=== PATIENT | male | born 1945 | race Caucasian/White ===

== ENCOUNTER 2024-05-16 13:20 | Observation (INO) ==
--- NOTE | 2024-05-16 13:37 | ED Triage Note ---
Date of Service May 16, 2024 Provider in Triage Author: Alva Rivers History of Present Illness This patient was briefly evaluated while in triage. An abbreviated physical exam was performed. This patient is a 78-year-old Male who presents to the ED for evaluation couldn't answer questions/speak properly, left arm wasn't working properly - started 1230 only now just starting to clear hx of TIA 10 years ago visiting from [place] on Xarelto Physical Exam GENERAL: NAD CARDIOVASCULAR: RRR RESPIRATORY: CTA NEURO: ambulatory into triage, mildly confused, speech clear, no facial droop Initial orders for labs and / or imaging were placed and patient was placed in the waiting area until a bed is available. Please see further documentation for the full ED course.
[2024-05-16] MEDS: OPTIRAY 320 125ml IV ONE (13:43)
--- NOTE | 2024-05-16 13:57 | Emergency Department Note ---
Impression & Plan TIA (transient ischemic attack), Stroke-like symptom ED Provider Note NAME: RADHA DE LA GARZA AGE: 78 SEX: M : 1945 ARRIVES VIA: Walk-In INFORMANT: Patient, , daughters ED PROVIDER(S): Willy Lentz MD CHIEF COMPLAINT: Left-sided weakness, facial droop, difficulty with speech MEDICAL DECISION MAKING: Patient presents with the above but did have improvement by the time presenting to the emergency department my evaluation. Stroke alert initiated. No overt deficits on exam. IV was established code stroke was initiated at the time of being evaluated in triage and the patient was sent immediately to CAT scan. By my read no obvious bleeding. The patient does take Xarelto. Patient does have a prior history of CVA in the past. I did speak with Dr. Cramer who stated that the initial CT head negative. CT angiography states show PT stenosis on the left side. I did speak with the on- call telestroke neurologist Dr. Olsen who stated no intervention at this time. He did state should consider removing the patient's aspirin as this may increase bleeding risk although patient does have a history of CABG. He also discussed adding Zetia to the patient's treatment regimen. These possible recommendations were passed on to the inpatient service and they will discuss treatment. Patient's blood work showed a normal white count mild anemia hemoglobin 13.6 with a normal platelet count. Kidney function is unremarkable. I did inform the patient and the patient's family of the recommendations. I subsequently did speak with Dr. Georges and the patient was admitted to the medicine service. MRI ordered and pending at the time of admission. Critical Care: I have personally spent 35 minutes of critical care time in direct management of this patient. This includes bedside care, interpretation of diagnostic studies, and testing, discussion with consultants, patient, and family members, and other require inpatient management activities. This 35 minutes is in excess of all separately billable procedures. Discussion w/ other healthcare providers: Dr. Cramer radiology Dr. Olsen telestroke neurology [facility] Dr. Georges inpatient service [facility] Prior /Outside records reviewed: none Differential diagnosis: Infection, dehydration, metabolic abnormality, hypo/hyperglycemia, electrolyte imbalance, anemia, UTI, pneumonia, thyroid dysfunction among others were considered. Diagnostics, as interpreted by me: ECG: A-fib, rate of 99, normal QRS duration, normal axis no obvious ST elevations. Cardiac monitoring: An order was placed for continuous cardiac monitoring. The monitor shows a rate of 95 with irregular irregular rhythm. Patient was placed on pulse oximetry Medical decision rules: None Imaging studies: I informally interpreted the patient's CT head which does not show obvious ICH with formal report to follow. HPI: Patient presents due to concern for left-sided weakness difficulty with speech and left-sided facial droop. Patient reportedly had a bout of confusion around this time this was an hour and half prior to arrival. The patient did present by private vehicle. Patient is visiting his daughters from [place]. The patient does feel as though symptoms are improving virtually resolving. The patient does not complain of any numbness. The patient primarily was concerned about his speech. The daughter states that she was evaluating his strength and seem to be a little "off" in his left arm and leg although was able to move both extremities. Patient denies any chest pains or shortness of breath. Family does report that he had some sort of fluid taken off of his heart at a time before. This was last Easter. Patient denies any chest pains or shortness of breath. No concern for tick bites or Lyme's. Patient did have a prior stroke about 10 years ago. He is anticoagulated due to known history of A-fib and does take aspirin as well as a statin. PAST MEDICAL HISTORY: CAD, hypertension, hyperlipidemia, CVA,, GERD, anxiety, BPH PAST SURGICAL HISTORY: CABG x 3 SOCIAL HISTORY: Denies alcohol tobacco or drug use. Lives in [place]. HOME MEDICATIONS: See Below ALLERGIES: See Below VITALS: See Below PHYSICAL EXAMINATION: GENERAL: NAD, non-toxic. EYE EXAM: Normal conjunctiva. PERRL, no anisocoria and EOM's grossly intact w/o pain. OROPHARYNX: Moist mucus membranes, grossly normal dentition. NECK: Trachea midline, no stridor. Supple, no nuchal rigidity, no adenopathy, non-tender. No signs of meningismus. FROM of the neck with good chin to chest and neck extension. LUNGS: Clear to auscultation. Normal chest wall mechanics. HEART: NSR, no MRG. ABDOMEN: Abdomen soft, non-tender, no masses, no rebound or guarding. BACK: No CVA TTP. SKIN: No rashes and no bruising. UPPER EXTREMITIES: Upper extremities are grossly normal. LOWER EXTREMITIES: Grossly normal, no edema. NEURO EXAM: A&O x3, cranial nerves II-XII grossly intact, normal speech, moves all 4 extremities. Good [id number], no drift and no sensory deficits. Equal and symmetric strength in all 4 extremities. Past Med/Surg History Problem List (Updated 05/17/24 @ 11:20 by Willy Lentz MD) Stroke-like symptom (Acute) TIA (transient ischemic attack) (Acute) Social History Smoking Status: Former smoker Hx Alcohol Use: No Hx Substance Use: No Preferred Language: Japanese Communication Ability: Effective Supervising Bailiff Required: No Beliefs That Will Affect Care: None Current Living Situation: Spouse Feels Safe at Home: Yes Assistive Devices: Glasses and Hearing Aid - Bilateral Allergies Allergies Allergy/AdvReac Type Severity Reaction Status Date / Time Tetanus Vaccines and Toxoid Allergy Unknown Verified 05/16/24 13:36 Home Meds Home Medications Medication Instructions Recorded Confirmed aspirin 81 mg tablet,delayed 81 mg PO DAILY 05/16/24 05/16/24 release atorvastatin 80 mg tablet 80 mg PO DAILY 05/16/24 05/16/24 dutasteride 0.5 mg capsule 0.5 mg PO DAILY 05/16/24 05/16/24 furosemide 20 mg tablet 20 mg PO Q OTHER DAY 05/16/24 05/16/24 metoprolol tartrate 25 mg tablet 12.5 mg PO BID 05/16/24 05/16/24 rivaroxaban 20 mg tablet (Xarelto) 20 mg PO DAILY 05/16/24 05/16/24 tamsulosin 0.4 mg capsule 0 mg PO BID 05/16/24 05/16/24 valsartan 40 mg tablet 20 mg PO BID 05/16/24 05/16/24 venlafaxine 150 mg tablet,extended See Rx Instructions .Route .COMPLEX 05/16/24 05/16/24 release 24 hr venlafaxine 75 mg capsule,extended See Rx Instructions .Route .COMPLEX 05/16/24 05/16/24 release 24 hr Results & Data (ED) Vital Signs Vital Signs - 24 hr 05/16/24 13:31 05/16/24 14:00 05/16/24 15:09 Temperature 36.9 C Temperature Source Temporal Artery Scan Pulse Rate 94 H 89 Pulse Rate [Right Finger] 81 Respiratory Rate 18 26 H Respiratory Effort / Characteristics Non-Labored Spontaneous Non-Labored Spontaneous Respiratory Depth Normal Normal Blood Pressure 149/89 H Blood Pressure [Right Arm] 159/108 H Blood Pressure Mean 109 Blood Pressure Mean [Right Arm] 125 Pulse Oximetry 97 100 Oxygen Delivery Method Room Air Room Air Sepsis Recent Fever Within 48 Hours No Sepsis New/Unexplained Change in Mental Status No Sepsis Action Taken by Nursing No Action Required Home Medications Current Medication List: was personally reviewed by me Laboratory Data Attestation: I reviewed the patient's lab results. 05/17/24 06:45 05/17/24 06:45 Lab Results 05/16/24 05/16/24 Range/Units 13:52 13:53 WBC 10.03 (4.8-10.8) K/ul RBC 4.12 L (4.70-6.10) M/uL Hgb 13.6 L (14.0-18.0) g/dl Hct 40.5 L (42.0-52.0) % MCV 98.3 (80.0-100.0) fL MCH 33.0 (25.0-34.0) pg MCHC 33.6 (32.0-36.0) g/dL RDW Std Deviation 44.0 (36.4-46.3) fL RDW Coeff of Mariel 12.2 (11.5-14.5) % Plt Count 164 (130-400) K/uL MPV 9.0 L (9.4-12.4) fL Immature Gran % (Auto) 0.6 % Neut % (Auto) 72.3 % Lymph % (Auto) 14.1 % [place] % (Auto) 10.8 % Eos % (Auto) 1.7 % Baso % (Auto) 0.5 % Neut # (Auto) 7.26 H (1.40-6.50) K/uL Lymph # (Auto) 1.41 (1.20-3.40) K/uL [place] # (Auto) 1.08 H (0.11-0.59) K/uL Eos # (Auto) 0.17 (0.00-0.50) K/uL Baso # (Auto) 0.05 (0.00-0.20) K/uL Immature Gran # (Auto) 0.06 (0.01-0.20) K/uL PT 13.5 H (9.0-12.0) Seconds INR 1.3 H (0.9-1.1) APTT 32 H (21-31) Seconds PTT Ratio 1.2 Sodium 137 (136-145) mmol/L Potassium 4.2 (3.5-5.1) mmol/L Chloride 104 (98-107) mmol/L Carbon Dioxide 29 (21-32) mmol/L Anion Gap 4 (3-11) BUN 25 H (6-23) mg/dl Creatinine 1.41 H (0.6-1.4) mg/dl Est Cr Clr Drug Dosing 46.2 ml/min eGFR 51.33 BUN/Creatinine Ratio 17.7 (10-20) Glucose 95 (70-99(Fasting)) mg/dl POC Glucose 88 (70-99) mg/dl Calcium 8.1 L (8.6-10.3) mg/dl Magnesium 1.8 (1.7-2.4) mg/dl Total Bilirubin 0.5 (0.2-1.0) mg/dl AST 17 (13-39) U/L ALT 14 (7-52) U/L Alkaline Phosphatase 87 (34-104) U/L Troponin I High Sens 9.1 (0-20) pg/ml Total Protein 5.8 L (6.0-8.3) gm/dl Albumin 3.2 L (3.4-5.0) gm/dl Globulin 2.6 (2.5-4.0) gm/dl Albumin/Globulin Ratio 1.2 (0.9-2) Administered Medications Aspirin (Aspirin 81 Mg Ectab) 81 mg PO DAILY [facility] Stop: 06/16/24 08:59 Last Admin: 05/17/24 08:25 Dose: 81 mg Documented By: MS Atorvastatin Calcium (Atorvastatin 40 Mg Tab) 80 mg PO DAILY CAM Stop: 06/16/24 08:59 Last Admin: 05/17/24 08:25 Dose: 80 mg Documented By: MS Finasteride (Finasteride 5 Mg Tab) 5 mg PO DAILY CAM Stop: 06/16/24 08:59 Last Admin: 05/17/24 08:25 Dose: 5 mg Documented By: MS Metoprolol Tartrate (Metoprolol Tartrate 25 Mg Tab) 12.5 mg PO BID CAM Stop: 06/15/24 20:59 Last Admin: 05/17/24 08:25 Dose: 12.5 mg Documented By: Admin: 05/16/24 20:55 Dose: 12.5 mg Documented By: BERNARD Rivaroxaban (Rivaroxaban 15 Mg Tab) 15 mg PO DAILY CAM Stop: 06/16/24 08:59 Last Admin: 05/17/24 08:24 Dose: 15 mg Documented By: Venlafaxine HCl (Venlafaxine Hcl Xr 75 Mg Capxr) 75 mg PO DAILY CAM Stop: 06/16/24 08:59 Last Admin: 05/17/24 08:24 Dose: 75 mg Documented By: Venlafaxine HCl (Venlafaxine Hcl Xr 150 Mg Capxr) 150 mg PO DAILY CAM Stop: 06/16/24 08:59 Last Admin: 05/17/24 08:24 Dose: 150 mg Documented By: MS Discontinued Medications Sodium Chloride (Nss) 1,000 mls @ 75 mls/hr IV .[id number] CAM Stop: 05/17/24 07:45 Last Infusion: 05/17/24 10:14 Dose: Infused Documented By: Admin: 05/16/24 20:54 Dose: 75 mls/hr Documented By: BERNARD Ioversol (Optiray 320 125ml) 117 ml IV ONCE ONE Stop: 05/16/24 13:43 Last Admin: 05/16/24 13:43 Dose: 117 ml Documented By: [facility] Imaging Data Radiologist's Impression: Head CT 05/16/24 13:40 CT angio neck with con, CT head/brain wo con CLINICAL HISTORY: neuro deficit, acute stroke suspected TECHNIQUE: Contiguous axial CT images of the head were acquired from the base of the skull to the vertex without intravenous contrast administration. CT angiography of the head and neck was performed following intravenous administration of iodinated contrast. Coronal and sagittal MIPS were obtained from the axial data set and were submitted for review. Automated dose lowering techniques and/or adjustment according to patient size were utilized for this examination. All measurements were calculated based on NASCET criteria. CT DOSE: 1189.32 mGy.cm Comparison: None available at the time of this dictation. FINDINGS: CT head: There is no acute intracranial hemorrhage or evidence of acute territorial infarction. No shift of the midline structures, mass effect, or extra-axial abnormalities are shown. Lungs and soft tissues are unremarkable. CTA Neck: A 3 vessel aortic arch is shown. There is no significant atherosclerotic plaque in the aortic arch or the origins of the innominate, left common carotid, and left subclavian arteries. There is approximately 50% bilateral stenosis of the internal carotid artery owing to plaque at the carotid bifurcations. The left vertebral artery is dominant. IMPRESSION: 1. No acute intracranial hemorrhage, evidence of acute territorial infarction, or other acute intracranial disease process. 2. Bilateral prominent but nonhemodynamically significant stenosis of the internal carotid arteries, likely on a chronic basis. Assessment of stenosis of the internal carotid arteries is based on NASCET criteria. ACT 112: Negative or not required by law. Electronically signed by: Chaka Escoto M.D. 05/16/2024 2:01 PM Head CTA 05/16/24 13:40 CTA ANGIOGRAPHY OF THE HEAD CLINICAL HISTORY: neuro deficit, acute stroke suspected COMPARISON STUDY: No previous studies for comparison. TECHNIQUE: Helical axial images of the head were obtained following uneventful intravenous administration of 117 cc of Optiray. Sagittal and coronal reconstructions were viewed as well as maximal intensity projections on an independent 3-D workstation. Automated exposure control was utilized for the study. A dose lowering technique was utilized adhering to the principles of ALARA. FINDINGS: No acute intracranial hemorrhage, midline shift or mass effect is present. Ventricular system is unremarkable. Basal cisterns are patent. There are no extra-axial collections. White matter hypodensities favor small vessel disease. There is moderate calcified plaque within the bilateral cavernous carotids which results in mild stenosis of these vessels. No large vessel occlusion is present. There are severe stenoses within the P2 segment of the left posterior cerebral artery. No abrupt vessel cut off is identified. No intracranial aneurysm. IMPRESSION: 1. No large vessel occlusion. No intracranial aneurysm. 2. 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 Mild stenosis of the bilateral cavernous carotids. ACT 112: Negative or not required by law. Electronically signed by: Venkata Castillo M.D. 05/16/2024 2:01 PM Neck CTA 05/16/24 13:40 CT angio neck with con, CT head/brain wo con CLINICAL HISTORY: neuro deficit, acute stroke suspected TECHNIQUE: Contiguous axial CT images of the head were acquired from the base of the skull to the vertex without intravenous contrast administration. CT angiography of the head and neck was performed following intravenous administration of iodinated contrast. Coronal and sagittal MIPS were obtained from the axial data set and were submitted for review. Automated dose lowering techniques and/or adjustment according to patient size were utilized for this examination. All measurements were calculated based on NASCET criteria. CT DOSE: 1189.32 mGy.cm Comparison: None available at the time of this dictation. FINDINGS: CT head: There is no acute intracranial hemorrhage or evidence of acute territorial infarction. No shift of the midline structures, mass effect, or extra-axial abnormalities are shown. Lungs and soft tissues are unremarkable. CTA Neck: A 3 vessel aortic arch is shown. There is no significant atherosclerotic plaque in the aortic arch or the origins of the innominate, left common carotid, and left subclavian arteries. There is approximately 50% bilateral stenosis of the internal carotid artery owing to plaque at the carotid bifurcations. The left vertebral artery is dominant. IMPRESSION: 1. No acute intracranial hemorrhage, evidence of acute territorial infarction, or other acute intracranial disease process. 2. Bilateral prominent but nonhemodynamically significant stenosis of the internal carotid arteries, likely on a chronic basis. Assessment of stenosis of the internal carotid arteries is based on NASCET criteria. ACT 112: Negative or not required by law. Electronically signed by: Chaka Escoto M.D. 05/16/2024 2:01 PM Brain MRI 05/16/24 15:04 EXAM: MR brain wo con CLINICAL HISTORY: Per pt''s - episode of confusion, slurred speech, and headache, no head trauma, hx stroke 10 yrs ago. TECHNIQUE: MRI of the brain was performed without contrast with multiplanar sequences obtained. COMPARISON: .No previous studies are available for comparison. FINDINGS: Brain Parenchyma: No evidence of acute infarction or hemorrhage. Bilateral periventricular sheets of abnormal bright T2 and FLAIR weighted images are seen denoting dismantled artery disease Multiple tiny subcentimeteric foci of bright signal in FLAIR weighted images are seen scattered within both cerebral hemispheres most evident at the frontoparietal regions Subcortical and periventricular in location, with no appreciable mass effect on the surrounding structures and no evidence of restricted diffusion. Ventricles and Sulci: Mild to moderate symmetrical dilatation of the ventricular system Widened both Sylvian fissures prominent cortical sulci and basal cisterns as well as extra-axial CSF spaces Posterior Fossa: The cerebellum and brainstem appear normal without evidence of mass lesions or signal abnormalities. Cranial Nerves: Normal course and appearance of cranial nerves identified. Vessels: No evidence of vascular malformations or aneurysms. Intracranial arteries and veins appear normal without evidence of stenosis or occlusion. Orbits and Skull Base: Orbits and skull base structures are normal without evidence of abnormalities. IMPRESSION: : 1. No acute intracranial abnormality was identified. 2. Cortical brain involutional changes with deep white matter small artery disease. 3. Bilateral cerebral ischemic foci and old lacunar infarcts. Electronically signed by Rodrigo Colby 05-16-2024 7:46 PM Discharge Plan Visit Data Chief Complaint: TIA Symptoms Stated Complaint: SPEECH, DROOPY FACE, LT NUMB, ED Provider: Willy Lentz Discharge Problem: TIA (transient ischemic attack), Stroke-like symptom Patient Disposition: Admitted As Inpatient Discharge Instructions Interventions: ED Discharge Assessment Last Done: 05/16/24 18:11
--- NOTE | 2024-05-16 14:02 | CT Scan Report ---
CT angio neck with con, CT head/brain wo con CLINICAL HISTORY: neuro deficit, acute stroke suspected TECHNIQUE: Contiguous axial CT images of the head were acquired from the base of the skull to the héctor oh without intravenous contrast administration. CT angiography of the head and neck was performed f ollowing intravenous administration of iodinated contrast. Coronal and sagittal MIPS were obtained fr om the axial data set and were submitted for review. Automated dose lowering techniques and/or adjus tment according to patient size were utilized for this examination. All measurements were calculated based on NASCET criteria. CT DOSE: 1189.32 mGy.cm Comparison: None available at the time of this dictation. FINDINGS: CT head: There is no acute intracranial hemorrhage or evidence of acute territorial infarction. No sh ift of the midline structures, mass effect, or extra-axial abnormalities are shown. Lungs and soft tissues are unremarkable. CTA Neck: A 3 vessel aortic arch is shown. There is no significant atherosclerotic plaque in the aor tic arch or the origins of the innominate, left common carotid, and left subclavian arteries. There is approximately 50% bilateral stenosis of the internal carotid artery owing to plaque at the carotid bifurcations. The left vertebral artery is dominant. IMPRESSION: 1. No acute intracranial hemorrhage, evidence of acute territorial infarction, or other acute intrac ranial disease process. 2. Bilateral prominent but nonhemodynamically significant stenosis of the internal carotid arteries, likely on a chronic basis. Assessment of stenosis of the internal carotid arteries is based on NASCET criteria. ACT 112: Negative or not required by law. Electronically signed by: Chaka Escoto M.D. 05/16/2024 2:01 PM
--- NOTE | 2024-05-16 14:02 | CT Scan Report ---
CTA ANGIOGRAPHY OF THE HEAD CLINICAL HISTORY: neuro deficit, acute stroke suspected COMPARISON STUDY: No previous studies for comparison. TECHNIQUE: Helical axial images of the head were obtained following uneventful intravenous administr ation of 117 cc of Optiray. Sagittal and coronal reconstructions were viewed as well as maximal inten sity projections on an independent 3-D workstation. Automated exposure control was utilized for the study. A dose lowering technique was utilized adhering to the principles of ALARA. FINDINGS: No acute intracranial hemorrhage, midline shift or mass effect is present. Ventricular syst em is unremarkable. Basal cisterns are patent. There are no extra-axial collections. White matter hyp odensities favor small vessel disease. There is moderate calcified plaque within the bilateral cavern ous carotids which results in mild stenosis of these vessels. No large vessel occlusion is present. T here are severe stenoses within the P2 segment of the left posterior cerebral artery. No abrupt vesse l cut off is identified. No intracranial aneurysm. IMPRESSION: 1. No large vessel occlusion. No intracranial aneurysm. 2. 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 Mild stenosis of the bilateral cavernous carotids. ACT 112: Negative or not required by law. Electronically signed by: Venkata Castillo M.D. 05/16/2024 2:01 PM
[2024-05-16 14:05] LABS: Basophils # (auto) 0.05 K/uL (0.00-0.20); Basophils % (auto) 0.5 %; Eosinophils # (auto) 0.17 K/uL (0.00-0.50); Eosinophils % (auto) 1.7 %; Hematocrit (blood only) 40.5 % (42.0-52.0); Hemoglobin 13.6 g/dl (14.0-18.0); Immature Granulocytes # (auto) 0.06 K/uL (0.01-0.20); Immature Granulocytes % (auto) 0.6 %; Lymphocytes # (auto) 1.41 K/uL (1.20-3.40); Lymphocytes % (auto) 14.1 %; Mean Corpuscular Hgb Conc 33.6 g/dL (32.0-36.0); Mean Corpuscular Volume 98.3 fL (80.0-100.0); Monocytes # (auto) 1.08 K/uL (0.11-0.59); Monocytes % (auto) 10.8 %; Neutrophils # (auto) 7.26 K/uL (1.40-6.50); Neutrophils % (auto) 72.3 %; Platelet Count 164 K/uL (130-400); RDW Coefficient of Variation 12.2 % (11.5-14.5); Red Blood Count 4.12 M/uL (4.70-6.10); White Blood Count 10.03 K/ul (4.8-10.8)
[2024-05-16 14:24] LABS: Albumin Globulin Ratio 1.2 (0.9-2); Albumin Level 3.2 gm/dl (3.4-5.0); BUN Creatinine Ratio 17.7 (10-20); Bilirubin,Total 0.5 mg/dl (0.2-1.0); Calcium 8.1 mg/dl (8.6-10.3); Creatinine Clr Calc Pharmacy 46.2 ml/min; Globulin 2.6 gm/dl (2.5-4.0); Magnesium 1.8 mg/dl (1.7-2.4); Potassium 4.2 mmol/L (3.5-5.1); Total Protein 5.8 gm/dl (6.0-8.3)
[2024-05-16 14:30] LABS: Troponin I High Sensitivity 9.1 pg/ml (0-20)
[2024-05-16 14:42] LABS: INR 1.3 (0.9-1.1); Partial Thromboplastin Ratio 1.2; Partial Thromboplastin Time 32 Seconds (21-31); Prothrombin Time 13.5 Seconds (9.0-12.0)
--- NOTE | 2024-05-16 17:34 | XRay Report ---
EXAM: Radiograph of the Chest 1 View INDICATION: Possible TIA. TECHNIQUE: Frontal view of the chest. COMPARISON: No relevant prior studies available. FINDINGS: Lungs and pleural spaces: Coarse interstitial scarring identified. No consolidation or pulmonary edema. No pleural effusion or pneumothorax. Heart: Large cardiac shadow. Coronary bypass changes noted. Mediastinum: Normal contour. Bones/joints: Old left clavicle fracture. Degenerative changes in the spine. No acute osseous abnormality. Soft tissues: No abnormality noted. No radiopaque foreign body noted. Upper abdomen: No abnormality noted. IMPRESSION: No acute cardiopulmonary disease. ACT 112: Negative or not required by law. Electronically signed by Rose Cramer 05-16-2024 5:33 PM
[2024-05-16] MEDS ORDERED: PHARMACIST DISCHARGE MED REC CONSULT PRN (18:26)
[2024-05-16] MEDS ORDERED: hydrALAZINE HCL 20 MG/ML VIAL IV PRN (18:26)
[2024-05-16] MEDS ORDERED: ACETAMINOPHEN 325 MG TAB PO PRN (18:26)
--- NOTE | 2024-05-16 19:46 | Magnetic Resonance Report ---
EXAM: MR brain wo con CLINICAL HISTORY: Per pt''s - episode of confusion, slurred speech, and headache, no head trauma, hx stroke 10 yrs ago. TECHNIQUE: MRI of the brain was performed without contrast with multiplanar sequences obtained. COMPARISON: .No previous studies are available for comparison. FINDINGS: Brain Parenchyma: No evidence of acute infarction or hemorrhage. Bilateral periventricular sheets of abnormal bright T2 and FLAIR weighted images are seen denoting dismantled artery disease Multiple tiny subcentimeteric foci of bright signal in FLAIR weighted images are seen scattered within both cerebral hemispheres most evident at the frontoparietal regions Subcortical and periventricular in location, with no appreciable mass effect on the surrounding structures and no evidence of restricted diffusion. Ventricles and Sulci: Mild to moderate symmetrical dilatation of the ventricular system Widened both Sylvian fissures prominent cortical sulci and basal cisterns as well as extra-axial CSF spaces Posterior Fossa: The cerebellum and brainstem appear normal without evidence of mass lesions or signal abnormalities. Cranial Nerves: Normal course and appearance of cranial nerves identified. Vessels: No evidence of vascular malformations or aneurysms. Intracranial arteries and veins appear normal without evidence of stenosis or occlusion. Orbits and Skull Base: Orbits and skull base structures are normal without evidence of abnormalities. IMPRESSION: : 1. No acute intracranial abnormality was identified. 2. Cortical brain involutional changes with deep white matter small artery disease. 3. Bilateral cerebral ischemic foci and old lacunar infarcts. Electronically signed by Rodrigo Colby 05-16-2024 7:46 PM
--- NOTE | 2024-05-16 20:50 | Electrocardiogram Report ---
Test Reason : Blood Pressure : */* mmHG Vent. Rate : 99 BPM Atrial Rate : * BPM P-R Int : * ms QRS Dur : 88 ms QT Int : 328 ms P-R-T Axes : * 36 3 degrees QTcB Int : 420 ms Atrial fibrillation Nonspecific ST abnormality Abnormal ECG No previous ECGs available Confirmed by Jonathan Hernandez ([id number]) on 05/16/2024 8:50:16 PM Referred By: REFERRED SELF Confirmed By: Jonathan Hernandez
[2024-05-16] MEDS: SODIUM CHLORIDE 0.9% 1,000 ML IV SCH (20:54)
[2024-05-16] MEDS: METOPROLOL TARTRATE 25 MG TAB PO SCH (20:55)
--- NOTE | 2024-05-16 23:16 | History & Physical Report ---
Date of Service May 16, 2024 Assessment & Plan (1) TIA (transient ischemic attack): Plan: 78-year-old male with history of coronary disease, status post CABG, CHF, atrial fibrillation on Xarelto, CVA, hypertension, other problems below presenting with left-sided weakness, slurred speech, facial droop at noon time today. Transient Ischemic attack Atrial fibrillation on Xarelto History of CVA Brain MRI: No acute CVA 1. No acute intracranial abnormality was identified. 2. Cortical brain involutional changes with deep white matter small artery disease. 3. Bilateral cerebral ischemic foci and old lacunar infarcts. [place] CVA CT angiogram head and neck: 1. No acute intracranial hemorrhage, evidence of acute territorial infarction, or other acute intracranial disease process. 2. Bilateral prominent but nonhemodynamically significant stenosis of the internal carotid arteries, likely on a chronic basis. Assessment of stenosis of the internal carotid arteries is based on NASCET criteria. Evaluated by [facility] telestroke, no acute intervention recommended, presentation felt to be TIA There was a mention of recommendation to stop aspirin and add Zetia Will await further recommendations by gastroenterology service who will be consulted per the case For now, continue usual Xarelto and aspirin Hold usual valsartan for permissive hypertension, as needed hydralazine for systolic blood pressure more than 160 Echocardiogram A1c, lipid panel in a.m. CAD, status post CABG CHF Euvolemic, no chest pain Continue usual aspirin, atorvastatin, metoprolol Usually on Lasix 20 mg every 2 days, hold for now as patient received IV contrast and to prevent hypotension Atrial fibrillation on Xarelto Rate controlled Continue metoprolol, Xarelto History of CVA Continue Xarelto, atorvastatin, aspirin Hypertension Hold valsartan for permissive hypertension in setting of TIA BPH Continue Flomax DVT prophylaxis already on Xarelto Full code as per patient Disposition Anticipate return to home medically stable PT OT ordered Lives in [place], visiting children in [place] Admission and Anticipated Discharge Date Admission Date: May 16, 2024 History of Present Illness Chief Complaint: Episode of left-sided weakness, slurred speech, facial droop in the afternoon Primary Care Provider: AUDRA SAUCEDO 78-year-old male with history of coronary disease, status post CABG, CHF, atrial fibrillation on Xarelto, CVA, hypertension, other problems below presenting with left-sided weakness, slurred speech, facial droop at noon time today. Patient lives in [place] and is in town visiting their children. He was doing fine until around 12 noon today, while walking in their deck, patient started to develop a "weird" sensation over the left side of his head, was noted to be slurring his words and not making sense when speaking as per family, as well as having some paresthesias in his left upper arm. Family brought the patient to the ER for evaluation. Patient received blood pressure 149/89, heart rate 94, afebrile, 97% on room air Upon arrival to the ER, which is about an hour and a half after the first symptoms were observed, patient's symptoms have mostly resolved as per family. CT head: No acute process CT angiogram head and neck showing bilateral prominent but nonhemodynamically significant stenosis of the ICAs, likely on a chronic basis Telestroke performed by [place] neurologist, no acute intervention recommended as patient's symptoms are mostly resolving. On exam, patient seen resting in bed, comfortable, in good spirits. Patient's at the bedside supplementing history as well. He reports a mild left-sided headache, but no focal weakness or numbness. His speech is mostly back to baseline as per patient and his . There was still some left lower facial droop. Allergies Allergy/AdvReac Type Severity Reaction Status Date / Time Tetanus Vaccines and Toxoid Allergy Unknown Verified 05/16/24 13:36 Home Medications Medication Instructions Recorded Confirmed Type aspirin 81 mg tablet,delayed 81 mg PO DAILY 05/16/24 05/16/24 History release atorvastatin 80 mg tablet 80 mg PO DAILY 05/16/24 05/16/24 History dutasteride 0.5 mg capsule 0.5 mg PO DAILY 05/16/24 05/16/24 History furosemide 20 mg tablet 20 mg PO Q OTHER DAY 05/16/24 05/16/24 History metoprolol tartrate 25 mg tablet 12.5 mg PO BID 05/16/24 05/16/24 History rivaroxaban 20 mg tablet (Xarelto) 20 mg PO DAILY 05/16/24 05/16/24 History tamsulosin 0.4 mg capsule 0 mg PO BID 05/16/24 05/16/24 History valsartan 40 mg tablet 20 mg PO BID 05/16/24 05/16/24 History venlafaxine 150 mg tablet,extended See Rx Instructions .Route .COMPLEX 05/16/24 05/16/24 History release 24 hr venlafaxine 75 mg capsule,extended See Rx Instructions .Route .COMPLEX 05/16/24 05/16/24 History release 24 hr Past Med/Surg History Problem List (Updated 05/16/24 @ 23:07 by Ryne Georges MD) TIA (transient ischemic attack) Social History Smoking Status: Former smoker Hx Alcohol Use: No Hx Substance Use: No Preferred Language: Romansh Communication Ability: Effective Poiser Balance Required: No Beliefs That Will Affect Care: None Current Living Situation: Spouse Feels Safe at Home: Yes Assistive Devices: Glasses and Hearing Aid - Bilateral Review of Systems Review of Systems: all noted and negative except for above Physical Exam Physical Exam: General- oriented x 3, not in distress, speaks in sentences with no effort or accessory muscle use Head- atraumatic Eyes- PERRL, EOMI, anicteric ENT- oropharynx clear Neck- supple, no JVD, no adenopathy, no thyromegaly; carotids +2/2, no bruits appreciated Lungs- clear to auscultation bilaterally, no rales/wheezes Heart- normal rate, regular rhythm; no murmur, no gallop, no rub appreciated Abdomen- normal bowel sounds, nondistended, soft, nontender, no masses or hepatosplenomegaly Extremities- no pretibial edema, no calf tenderness; peripheral pulses intact Neuro- alert, oriented x 3; CN 2-12 grossly intact Except for mild left lower facial droop; motor 5/5 bilaterally;sensation 100% on all extremities; no other gross focal neurologic deficits Skin- warm & dry Results & Data Results & Data Vital Signs (Past 12 Hours) Vital Signs Temp Pulse Pulse Resp BP BP Pulse Ox 05/16/24 20:18 37.0 C 86 18 140/88 95 05/16/24 19:03 90 05/16/24 18:28 37 C 95 H 18 165/90 H 98 05/16/24 17:41 72 20 162/98 H 99 05/16/24 16:38 106 H 22 165/132 H 99 05/16/24 15:09 81 26 H 159/108 H 100 05/16/24 14:00 89 05/16/24 13:31 36.9 C 94 H 18 149/89 H 97 O2 Del Method 05/16/24 20:18 Room Air 05/16/24 19:03 05/16/24 18:28 Room Air 05/16/24 17:41 Room Air 05/16/24 16:38 Room Air 05/16/24 15:09 Room Air 05/16/24 14:00 05/16/24 13:31 Room Air all noted and reviewed including below Code Status & VTE Plan VTE Prophylaxis Plan VTE Prophylaxis will be ordered: Yes
[2024-05-17 08:06] LABS: Basophils # (auto) 0.07 K/uL (0.00-0.20); Basophils % (auto) 0.8 %; Eosinophils # (auto) 0.29 K/uL (0.00-0.50); Eosinophils % (auto) 3.4 %; Hemoglobin 14.7 g/dl (14.0-18.0); Immature Granulocytes # (auto) 0.04 K/uL (0.01-0.20); Immature Granulocytes % (auto) 0.5 %; Lymphocytes # (auto) 2.72 K/uL (1.20-3.40); Lymphocytes % (auto) 31.7 %; Mean Corpuscular Hemoglobin 33.1 pg (25.0-34.0); Mean Corpuscular Hgb Conc 34.2 g/dL (32.0-36.0); Mean Corpuscular Volume 96.8 fL (80.0-100.0); Mean Platelet Volume 9.7 fL (9.4-12.4); Monocytes # (auto) 0.99 K/uL (0.11-0.59); Monocytes % (auto) 11.6 %; Neutrophils # (auto) 4.46 K/uL (1.40-6.50); Platelet Count 179 K/uL (130-400); RDW Coefficient of Variation 12.3 % (11.5-14.5); RDW Standard Deviation 43.8 fL (36.4-46.3); Red Blood Count 4.44 M/uL (4.70-6.10); White Blood Count 8.57 K/ul (4.8-10.8)
[2024-05-17 08:09] LABS: BUN Creatinine Ratio 16.7 (10-20); Calcium 8.4 mg/dl (8.6-10.3); Chol HDL Ratio 3.4 (0-5); Creatinine Clr Calc Pharmacy 43.4 ml/min; Potassium 4.3 mmol/L (3.5-5.1)
[2024-05-17 08:23] LABS: Estimated Average Glucose 128 mg/dl; Hemoglobin A1C 6.1 % (4.5-5.6)
[2024-05-17] MEDS: RIVAROXABAN 15 MG TAB PO SCH (08:24)
[2024-05-17] MEDS: VENLAFAXINE HCL XR 150 MG CAPXR PO SCH (08:24)
[2024-05-17] MEDS: VENLAFAXINE HCL XR 75 MG CAPXR PO SCH (08:24)
[2024-05-17] MEDS: ASPIRIN 81 MG ECTAB PO SCH (08:25)
[2024-05-17] MEDS: FINASTERIDE 5 MG TAB PO SCH (08:25)
[2024-05-17] MEDS: ATORVASTATIN 40 MG TAB PO SCH (08:25)
[2024-05-17 12:13] VITALS: BP 142/65; RESP 16; TEMP 98.1; O2SAT 97
--- NOTE | 2024-05-17 14:22 | Neurology Consultation ---
Date of Consultation May 17, 2024 Assessment & Plan (1) TIA (transient ischemic attack): Suspect that the patient had a TIA yesterday related to his atrial fibrillation, unsure about hypoperfusion through stenosed vessels Plan Discussed with the patient that management regarding stroke prevention would continue to be with an anticoagulant like Xarelto. Strategies include adequate hydration, probably treating infections, medication compliance and continuing to take statins. Echocardiogram is pending however management would continue to be with anticoagulation I agree that the patient needs to discuss the need for added aspirin to the Xarelto given the high risk of bleeding. Adherence with CPAP Further cardiac management per cardiology and primary team. Telehealth Consultation Telehealth Information Telehealth Information: I performed this visit using a real-time telehealth connection between my location and the patients location ([facility]). After connecting through interactive tele-video, patient was identified by name and date of and/or wristband check.Patient (or authorized healthcare uniforms sales representative) was informed that this was a telemedicine visit and it was being conducted confidentially over secure lines. My office door was closed and no one else was present in the room with me.Patient (or authorized healthcare uniforms sales representative) provided consent to proceed with the visit, expressed an understanding of privacy and security of the telemedicine visit, and gave permission to have a hospital uniforms sales representative in the room in order to assist with the visit and to conduct portions of the visit, as needed. I informed the patient (or authorized healthcare uniforms sales representative) that I reviewed their record and presented the opportunity for them to ask any questions regarding the visit today. The patient agreed to participate. History of Present Illness Reason for Consultation: TIA Requesting Physician: Ovi Hennessy MD Attending Physician: Gerhard Dior MD History of Present Illness Demarcus De La Cruz is [id number] male patient with PMH of A-fib on Xarelto, and aspirin CAD, s/p CABG, HTN, BPH who presented with acute onset of dysarthria and speech changes in addition to weird sensation on the left side of her head, her symptoms have mostly resolved per family upon ED arrival. Stroke neurology has recommended adding Zetia. Today the patient tells me that his symptoms have resolved he has no focal neurological deficits, no visual changes no slurring of his speech or difficulty with swallowing no numbness or weakness, his balance is okay. He had questions about echocardiogram, about possible CHF exacerbation. About the continuing use of CPAP machine. Allergies Allergy/AdvReac Type Severity Reaction Status Date / Time Tetanus Vaccines and Toxoid Allergy Unknown Verified 05/16/24 13:36 Home Medications Medication Instructions Recorded Confirmed Type aspirin 81 mg tablet,delayed 81 mg PO DAILY 05/16/24 05/16/24 History release atorvastatin 80 mg tablet 80 mg PO DAILY 05/16/24 05/16/24 History dutasteride 0.5 mg capsule 0.5 mg PO DAILY 05/16/24 05/16/24 History furosemide 20 mg tablet 20 mg PO Q OTHER DAY 05/16/24 05/16/24 History metoprolol tartrate 25 mg tablet 12.5 mg PO BID 05/16/24 05/16/24 History rivaroxaban 20 mg tablet (Xarelto) 20 mg PO DAILY 05/16/24 05/16/24 History tamsulosin 0.4 mg capsule 0 mg PO BID 05/16/24 05/16/24 History valsartan 40 mg tablet 20 mg PO BID 05/16/24 05/16/24 History venlafaxine 150 mg tablet,extended See Rx Instructions .Route .COMPLEX 05/16/24 05/16/24 History release 24 hr venlafaxine 75 mg capsule,extended See Rx Instructions .Route .COMPLEX 05/16/24 05/16/24 History release 24 hr Patient History Social History Smoking Status: Former smoker Hx Alcohol Use: No Hx Substance Use: No Preferred Language: Malagasy Communication Ability: Effective Ecology Professor Required: No Beliefs That Will Affect Care: None Current Living Situation: Spouse Feels Safe at Home: Yes Assistive Devices: Glasses and Hearing Aid - Bilateral Review of Systems Constitutional: Patient denies weight loss, fever, chills, and night sweats Eyes: Patient denies change in vision, tearing, pain, and redness ENT: Patient denies pain, bleeding, rhinorrhea, and dysphagia Cardiovascular: Patient denies chest pain, palpitation, dyspnea at rest, and dyspnea with exertion Respiratory: Patient denies shortness of breath, cough, wheezing, and productive cough GI: Patient denies reflux, pain, constipation, and diarrhea Skin: Patient denies rash, dryness, and itching Allergies/Immune System: Patient denies rhinorrhea, seasonal allergies, reaction to current MEDS, and joint swelling Endocrine: Patient denies weight loss, weight gain, temperature intolerance, and excessive thirst Neurological: All negative unless mentioned in the HPI Physical Exam General Constitutional: Appearance normally developed Head and face: normocephalic and atraumatic Eyes: no ptosis, no anisocoria, and no dysconjugate gaze Respiratory: normal effort Cardiovascular: regular rhythm and regular rate Abdomen: non distended Skin: no rashes, lesions, or ulcers noted Psychiatric: normal judgement and insight, normal mood, and normal affect NEUROLOGIC EXAMINATION: Mental Status:alert, oriented to time, place, person, normal recent memory, normal remote memory, normal attention span, normal concentration, normal language and normal fund of knowledge Cranial Nerves: CN 2 - no visual defect on confrontation and pupils round, equal, reactive to light CN 3, 4, 6 - extra-ocular movements intact and no nystagmus CN 5 - facial sensation intact CN 7 - no facial asymmetry CN 8 - intact hearing CN 9, 10 - palate symmetric, normal gag CN 11 - good shoulder shrug CN 12 - tongue midline MOTOR: Strength was at least antigravity throughout, Pronator drift was absent and There were no abnormal movements SENSATION: intact and symmetric to pinprick, light touch, vibration and joint position GAIT: stable, no ataxia and can perform tandem walking COORDINATION: no ataxia with finger to nose testing and heel to mcbride testing REFLEXES: cannot assess over telemedicine NIH Stroke Scale: 1a. Level of Consciousness: alert = 0 1b. LOC Questions: (month, age): both correct = 0 1c. LOC Commands (open and close eyes, make fist and let go using non-paretic hand): obeys both correctly = 0 2. Best Gaze (eyes open and patient follows examiner's finger or face): normal = 0 3. Visual (visual threat or finger counting in each quadrant): no loss = 0 4. Facial Palsy (show teeth, raise eye brows and squeeze eyes shut, or grimace symmetry in a comatose patient): normal = 0 5a. Motor Arm (extend arm (palms down) to 90 degrees and score drift/movement (10 seconds) - Left: no drift = 0 5b. Motor Arm: (extend arm (palms down) to 90 degrees and score drift/movement (10 seconds) - Right: no drift = 0 6a. Motor Leg (elevate leg 30 degrees and score drift/ movement (5 seconds) - Left: no drift = 0 6b. Motor Leg (elevate leg 30 degrees and score drift/ movement (5 seconds) - Right: no drift = 0 7. Limb Ataxia (finger to nose, heel down mcbride): absent = 0 8. Sensory (pin prick to face, arm, trunk and leg, compare side to side): normal = 0 9. Best Language: no aphasia = 0 10. Dysarthria (evaluate speech clarity by patient repeating listed words): normal articulation = 0 11. Extinction and Inattention: no neglect = 0 Total: 0 Results & Data Vital Signs (Past 12 Hours) Vital Signs Temp Pulse Pulse Resp BP Pulse Ox O2 Del Method 05/17/24 12:00 36.7 C 98 H 16 142/65 H 97 Room Air 05/17/24 07:26 36.6 C 86 18 151/90 H 98 Room Air 05/17/24 07:15 104 H 05/17/24 03:14 36.3 C L 93 H 20 151/96 H 96 CPAP Laboratory Results Laboratory Results - last 24 hr 05/16/24 05/17/24 13:52 06:45 WBC 8.57 RBC 4.44 L Hgb 14.7 Hct 43.0 MCV 96.8 MCH 33.1 MCHC 34.2 RDW Std Deviation 43.8 RDW Coeff of Mariel 12.3 Plt Count 179 MPV 9.7 Immature Gran % (Auto) 0.5 Neut % (Auto) 52.0 Lymph % (Auto) 31.7 Keith % (Auto) 11.6 Eos % (Auto) 3.4 Baso % (Auto) 0.8 Neut # (Auto) 4.46 Lymph # (Auto) 2.72 Keith # (Auto) 0.99 H Eos # (Auto) 0.29 Baso # (Auto) 0.07 Immature Gran # (Auto) 0.04 PT 13.5 H INR 1.3 H APTT 32 H PTT Ratio 1.2 Sodium 137 139 Potassium 4.2 4.3 Chloride 104 106 Carbon Dioxide 29 26 Anion Gap 4 7 BUN 25 H 23 Creatinine 1.41 H 1.38 Est Cr Clr Drug Dosing 46.2 43.4 eGFR 51.33 52.67 BUN/Creatinine Ratio 17.7 16.7 Glucose 95 94 Estimat Average Glucose 128 Hemoglobin A1c 6.1 H Calcium 8.1 L 8.4 L Magnesium 1.8 Total Bilirubin 0.5 AST 17 ALT 14 Alkaline Phosphatase 87 Troponin I High Sens 9.1 Total Protein 5.8 L Albumin 3.2 L Globulin 2.6 Albumin/Globulin Ratio 1.2 Triglycerides 118 Cholesterol 159 LDL Cholesterol, Calc 88 VLDL Cholesterol, Calc 24 HDL Cholesterol 47 Cholesterol/HDL Ratio 3.4 Diagnostic Findings Brain MRI 05/16/24 15:04 EXAM: MR brain wo con CLINICAL HISTORY: Per pt''s - episode of confusion, slurred speech, and headache, no head trauma, hx stroke 10 yrs ago. TECHNIQUE: MRI of the brain was performed without contrast with multiplanar sequences obtained. COMPARISON: .No previous studies are available for comparison. FINDINGS: Brain Parenchyma: No evidence of acute infarction or hemorrhage. Bilateral periventricular sheets of abnormal bright T2 and FLAIR weighted images are seen denoting dismantled artery disease Multiple tiny subcentimeteric foci of bright signal in FLAIR weighted images are seen scattered within both cerebral hemispheres most evident at the frontoparietal regions Subcortical and periventricular in location, with no appreciable mass effect on the surrounding structures and no evidence of restricted diffusion. Ventricles and Sulci: Mild to moderate symmetrical dilatation of the ventricular system Widened both Sylvian fissures prominent cortical sulci and basal cisterns as well as extra-axial CSF spaces Posterior Fossa: The cerebellum and brainstem appear normal without evidence of mass lesions or signal abnormalities. Cranial Nerves: Normal course and appearance of cranial nerves identified. Vessels: No evidence of vascular malformations or aneurysms. Intracranial arteries and veins appear normal without evidence of stenosis or occlusion. Orbits and Skull Base: Orbits and skull base structures are normal without evidence of abnormalities. IMPRESSION: : 1. No acute intracranial abnormality was identified. 2. Cortical brain involutional changes with deep white matter small artery disease. 3. Bilateral cerebral ischemic foci and old lacunar infarcts. Electronically signed by Rodrigo Colby 05-16-2024 7:46 PM Chest X-Ray 05/16/24 16:43 EXAM: Radiograph of the Chest 1 View INDICATION: Possible TIA. TECHNIQUE: Frontal view of the chest. COMPARISON: No relevant prior studies available. FINDINGS: Lungs and pleural spaces: Coarse interstitial scarring identified. No consolidation or pulmonary edema. No pleural effusion or pneumothorax. Heart: Large cardiac shadow. Coronary bypass changes noted. Mediastinum: Normal contour. Bones/joints: Old left clavicle fracture. Degenerative changes in the spine. No acute osseous abnormality. Soft tissues: No abnormality noted. No radiopaque foreign body noted. Upper abdomen: No abnormality noted. IMPRESSION: No acute cardiopulmonary disease. ACT 112: Negative or not required by law. Electronically signed by Shoaib Rose 05-16-2024 5:33 PM Per my review MRI of the brain: Shows no acute ischemic changes, significant chronic white matter changes. CT scan of the head shows chronic white matter changes no acute infarcts CTA of the head and neck shows scattered atherosclerotic disease with a notable left P2 stenosis mild bilateral intra cranial carotid stenosis. Medications Administered Home Medications Medication Instructions Recorded Confirmed Last Taken aspirin 81 mg tablet,delayed 81 mg PO DAILY 05/16/24 05/16/24 05/16/24 release atorvastatin 80 mg tablet 80 mg PO DAILY 05/16/24 05/16/24 05/16/24 dutasteride 0.5 mg capsule 0.5 mg PO DAILY 05/16/24 05/16/24 05/16/24 furosemide 20 mg tablet 20 mg PO Q OTHER DAY 05/16/24 05/16/24 05/16/24 metoprolol tartrate 25 mg tablet 12.5 mg PO BID 05/16/24 05/16/24 05/16/24 rivaroxaban 20 mg tablet (Xarelto) 20 mg PO DAILY 05/16/24 05/16/24 05/16/24 tamsulosin 0.4 mg capsule 0 mg PO BID 05/16/24 05/16/24 05/16/24 valsartan 40 mg tablet 20 mg PO BID 05/16/24 05/16/24 05/16/24 venlafaxine 150 mg tablet,extended See Rx Instructions .Route .COMPLEX 05/16/24 05/16/24 05/16/24 release 24 hr venlafaxine 75 mg capsule,extended See Rx Instructions .Route .COMPLEX 05/16/24 05/16/24 05/16/24 release 24 hr Active Medications Generic Name Dose Route Start Last Admin Trade Name Kristopherq PRN Reason Stop Dose Admin Aspirin 81 mg 05/17/24 09:00 05/17/24 08:25 Aspirin 81 Mg Ectab PO 06/16/24 08:59 81 mg DAILY CAM Administration Atorvastatin Calcium 80 mg 05/17/24 09:00 05/17/24 08:25 Atorvastatin 40 Mg Tab PO 06/16/24 08:59 80 mg DAILY CAM Administration Finasteride 5 mg 05/17/24 09:00 05/17/24 08:25 Finasteride 5 Mg Tab PO 06/16/24 08:59 5 mg DAILY CAM Administration Metoprolol Tartrate 12.5 mg 05/16/24 21:00 05/17/24 08:25 Metoprolol Tartrate 25 Mg Tab PO 06/15/24 20:59 12.5 mg BID CAM Administration Rivaroxaban 15 mg 05/17/24 09:00 05/17/24 08:24 Rivaroxaban 15 Mg Tab PO 06/16/24 08:59 15 mg DAILY CAM Administration Venlafaxine HCl 75 mg 05/17/24 09:00 05/17/24 08:24 Venlafaxine Hcl Xr 75 Mg Capxr PO 06/16/24 08:59 75 mg DAILY CAM Administration Venlafaxine HCl 150 mg 05/17/24 09:00 05/17/24 08:24 Venlafaxine Hcl Xr 150 Mg Capxr PO 06/16/24 08:59 150 mg DAILY CAM Administration ECG Additional Comments: Atrial fibrillation
[2024-05-17] MEDS: TAMSULOSIN HCL 0.4 MG CAP PO SCH (14:40)
--- NOTE | 2024-05-17 16:14 | Discharge Summary ---
Date of Service May 17, 2024 Admission HPI Per Admitting Provider 78-year-old male with history of coronary disease, status post CABG, CHF, atrial fibrillation on Xarelto, CVA, hypertension, other problems below presenting with left-sided weakness, slurred speech, facial droop at noon time today. Patient lives in [place] and is in town visiting their children. He was doing fine until around 12 noon today, while walking in their deck, patient started to develop a "weird" sensation over the left side of his head, was noted to be slurring his words and not making sense when speaking as per family, as well as having some paresthesias in his left upper arm. Family brought the patient to the ER for evaluation. Patient received blood pressure 149/89, heart rate 94, afebrile, 97% on room air Upon arrival to the ER, which is about an hour and a half after the first symp toms were observed, patient's symptoms have mostly resolved as per family. CT head: No acute process CT angiogram head and neck showing bilateral prominent but nonhemodynamically significant stenosis of the ICAs, likely on a chronic basis Telestroke performed by [place] neurologist, no acute intervention recommended as patient's symptoms are mostly resolving. On exam, patient seen resting in bed, comfortable, in good spirits. Patient's at the bedside supplementing history as well. He reports a mild left-sided headache, but no focal weakness or numbness. His speech is mostly back to baseline as per patient and his . There was still some left lower facial droop. Admission Exam Per Admitting Provider General- oriented x 3, not in distress, speaks in sentences with no effort or accessory muscle use Head- atraumatic Eyes- PERRL, EOMI, anicteric ENT- oropharynx clear Neck- supple, no JVD, no adenopathy, no thyromegaly; carotids +2/2, no bruits appreciated Lungs- clear to auscultation bilaterally, no rales/wheezes Heart- normal rate, regular rhythm; no murmur, no gallop, no rub appreciated Abdomen- normal bowel sounds, nondistended, soft, nontender, no masses or hepatosplenomegaly Extremities- no pretibial edema, no calf tenderness; peripheral pulses intact Neuro- alert, oriented x 3; CN 2-12 grossly intact Except for mild left lower facial droop; motor 5/5 bilaterally;sensation 100% on all extremities; no other gross focal neurologic deficits Skin- warm & dry Principal Diagnosis TIA Discharge Exam General- oriented x 3, not in distress, speaks in sentences with no effort or a ccessory muscle use Head- atraumatic Eyes- PERRL, EOMI, anicteric Neck- supple Lungs- clear to auscultation bilaterally, no rales/wheezes Heart- normal rate, regular rhythm; no murmur Abdomen- normal bowel sounds, nondistended, soft, nontender Extremities- no pretibial edema, no calf tenderness Neuro- alert, oriented x 3; answers appropriately, no facial asymmetry, moves extremities Skin- warm & dry Discharge Data Allergies Allergy/AdvReac Type Severity Reaction Status Date / Time Tetanus Vaccines and Toxoid Allergy Unknown Verified 05/16/24 13:36 Consultations 05/16/24 15:04 ED Decision to Admit Stat 05/16/24 18:26 Consult Neurology Routine Ordered Studies 05/16/24 13:40 CT angio head w con Stat CT angio neck with con Stat CT head/brain wo con Stat 05/16/24 15:04 MR brain wo con Routine Hospital Course (1) TIA (transient ischemic attack): 78-year-old male with history of coronary disease, status post CABG, CHF, atrial fibrillation on Xarelto, CVA, hypertension, other problems below presenting with left-sided weakness, slurred speech, facial droop at noon time. Transient Ischemic attack Atrial fibrillation on Xarelto History of CVA Brain MRI: No acute CVA 1. No acute intracranial abnormality was identified. 2. Cortical brain involutional changes with deep white matter small artery disease. 3. Bilateral cerebral ischemic foci and old lacunar infarcts. camille CVA CT angiogram head and neck: 1. No acute intracranial hemorrhage, evidence of acute territorial infarction, or other acute intracranial disease process. 2. Bilateral prominent but non-hemodynamically significant stenosis of the internal carotid arteries, likely on a chronic basis. Assessment of stenosis of the internal carotid arteries is based on NASCET criteria. Evaluated by [facility] telestroke, no acute intervention recommended, presentation felt to be TIA There was a mention of recommendation to stop aspirin and add Zetia Will await further recommendations by gastroenterology service who will be consulted per the case For now, continue usual Xarelto and aspirin Hold usual valsartan for permissive hypertension, as needed hydralazine for systolic blood pressure more than 160 Echocardiogram A1c 6.1% , lipid panel LDL 88 CAD, status post CABG CHF Euvolemic, no chest pain Continue usual aspirin, atorvastatin, metoprolol Usually on Lasix 20 mg every 2 days, hold for now as patient received IV contrast and to prevent hypotension Atrial fibrillation on Xarelto Rate controlled Continue metoprolol, Xarelto History of CVA Continue Xarelto, atorvastatin, aspirin Hypertension Hold valsartan for permissive hypertension in setting of TIA BPH Continue Flomax DVT prophylaxis already on Xarelto Full code as per patient Disposition Anticipate return to home medically stable PT OT ordered Lives in [place], visiting children in [place] By [facility] guidelines, a determination that the admission or continued stay is not medically necessary has been made by a member of the UR committee and a physician for this hospital stay, therefore a Code 44 will be completed and the Inpatient admission will be changed to outpatient. Discharge Plan Discharge Items Patient Disposition: Home - Self-Care Reason For Visit: POSSIBLE TIA Discharge Diagnosis: TIA Activity: Per Instructions section Non-emergency contact: Primary Care Provider, Software Security Consultant and Neurologist Call non-emergency contact if: you have any medication questions and your symptoms worsen Follow-up/Referrals: AUDRA SAUCEDO [Other] Diet: Heart Healthy Addtl Attending Provider Instructions: Follow up with primary care physician, neurologist, and director of special events. You should be seen by your primary care physician within 1-2 weeks. Pending Studies at Discharge: No Stand-Alone Forms: My [facility] Rupture, Smoking Cessation Medications and DC Order Prescriptions: Continued atorvastatin 80 mg tablet 80 mg PO DAILY venlafaxine 75 mg capsule,extended release 24hr See Rx Instructions .ROUTE .COMPLEX Rx Instructions: Take 75mg w/ 150mg to equal 225mg by mouth once daily. aspirin 81 mg Tablet,Delayed Release (Dr/Ec) 81 mg PO DAILY tamsulosin 0.4 mg capsule 0 mg PO BID Rx Instructions: Original Directions: 0.4mg by mouth daily. Per spouse pt now takes as follows: 0.4mg by mouth twice daily valsartan 40 mg tablet 20 mg PO BID dutasteride 0.5 mg capsule 0.5 mg PO DAILY metoprolol tartrate 25 mg tablet 12.5 mg PO BID venlafaxine 150 mg tablet extended release 24hr See Rx Instructions .ROUTE .COMPLEX Rx Instructions: Take 150mg w/ 75mg to equal 225mg by mouth once daily. Xarelto 20 mg tablet 20 mg PO DAILY furosemide 20 mg tablet 20 mg PO Q OTHER DAY Rx Instructions: Last filled 12/2023 x90 day supply Discharge Orders: Discharge Order (Routine); Ordered 05/17/24 Ordered By: Gerhard Sweet/Other Patient Handouts: Prediabetes, 5 Steps for Eating Healthier Admission Data Admit Date/Time: 05/16/24 15:41 Attending Provider: Gerhard Dior Admit Provider: Ryne Georges Primary Care Provider: AUDRA SAUCEDO Providers: Ryne Georges; Aniyah Jauregui; Ramo Mcdaniels; Aniyah Flores; Blair Darling; Tom Guadalupe; Josemanuel Perez; Tavo hSafer; Carmela Pillai; Jerardo Tamayo; Jamal Hwang; Bret Watkins; Sriram Prescott; Kimberly Heath; Danya Jackson; Tavo Worthington; Debbie Lebron
[2024-05-17] MEDS ORDERED: STROKE PATIENT DISCHARGE STA (16:18)
[2024-05-17 16:40] VITALS: PULSE 98
--- NOTE | 2024-05-18 11:02 | Pharmacy Report ---
Pharmacist Stroke Counseling - Date of Service May 18, 2024 - Scope: Pharmacy has been consulted to provide medication discharge counseling for this patient admitted with transient ischemic attack as per the Pharmacist Discharge Counseling for Stroke Patients Protocol. - Medications on Discharge: Home Medications Medication Instructions Recorded Confirmed aspirin 81 mg tablet,delayed 81 mg PO DAILY 05/16/24 05/16/24 release atorvastatin 80 mg tablet 80 mg PO DAILY 05/16/24 05/16/24 dutasteride 0.5 mg capsule 0.5 mg PO DAILY 05/16/24 05/16/24 furosemide 20 mg tablet 20 mg PO Q OTHER DAY 05/16/24 05/16/24 metoprolol tartrate 25 mg tablet 12.5 mg PO BID 05/16/24 05/16/24 rivaroxaban 20 mg tablet (Xarelto) 20 mg PO DAILY 05/16/24 05/16/24 tamsulosin 0.4 mg capsule 0 mg PO BID 05/16/24 05/16/24 valsartan 40 mg tablet 20 mg PO BID 05/16/24 05/16/24 venlafaxine 150 mg tablet,extended See Rx Instructions .Route .COMPLEX 05/16/24 05/16/24 release 24 hr venlafaxine 75 mg capsule,extended See Rx Instructions .Route .COMPLEX 05/16/24 05/16/24 release 24 hr - Action: The above medications, specifically ones for stroke treatment/prophylaxis, have been reviewed in detail with the patient over the phone post discharge. This includes indication, common adverse reactions, drug interactions, and medication administration. Medication counseling has been employed using the teach-back method to ensure understanding. - Outcome: The patient has demonstrated understanding of the medications. No changes were made to current medication list, and patient was very appreciative of his care he received during his stay at [facility]. Thank you for allowing pharmacy to be involved in the care of this patient. Please call [phone] with any additional questions
== END 2024-05-17 17:22 | disposition home or self-care (01) | DRG 69 ==
LOC: ED 13:20 → INTOOBSV 15:41 → EDINP 15:41 → SUATTDRO 15:41 → 2E 18:11